=== PATIENT | female | born 1990 | race Caucasian/White ===

== ENCOUNTER → 2022-12-19 | Outpatient (CLI) | payer MEDICAID ==
[~2022-12-19] MED LIST: GADOTERATE 0.5 MMOL/ML (CLARISCAN) 20 ML VIAL IV ONE
--- NOTE | 2022-12-19 18:01 | Diagnostic Imaging Report ---
CLINICAL INDICATIONS: Patient has a fracture of the mid spine area. EXAM: MRI of the thoracic spine performed without IV contrast. Sequences include sagittal T2, sagittal T1, sagittal T2 fat-sat, axial T2, and axial T1. COMPARISON: None. FINDINGS: There is no acute thoracic spine fracture or dislocation. There are chronic compression deformities/Schmorl's nodes involving the upper aspect of the T6 and T10 vertebra with associated Modic type II degenerative signal changes at the T5-T6 and T9-T10 endplate regions. There is roughly 40% localized vertebral body height loss involving the upper aspect of T6 vertebra and roughly 60-70% focal vertebral body height loss involving the upper T10 vertebra. There are diffuse disk bulges seen at T6-T7 and T9-T10 levels. There is no significant central canal narrowing at the T6-T7 level and no significant central canal narrowing at the T9-T10 level. There is mild bilateral T4-T5 and T5-T6 disk space region. IMPRESSION: 1: There are chronic compression deformities or Schmorl's nodes involving the upper endplates of the T6 and T10 vertebra. There is no associated marrow edema. 2: There is thoracic spine degenerative disease with no significant central canal or neural foramen narrowing. 3: There are degenerative spurs involving the thoracic spine and facet arthropathy. Dictated by: Dictated on workstation # [id number]
== END ==
LOC: RAD 13:50
PROVIDERS: ATTEND Nurse Practitioner Family
DX: M51.44 Schmorl's nodes, thoracic region (principal); M47.814 Spondylosis without myelopathy or radiculopathy, thoracic region; S22.009S Unspecified fracture of unspecified thoracic vertebra, sequela; X58.XXXS Exposure to other specified factors, sequela
CPT/HCPCS: 72157

== ENCOUNTER 2023-09-23 13:12 | Emergency (ER) | payer SELFPAY ==
[~2023-09-23] VITALS: Ht 154.9 cm; Wt 109.0 kg
[2023-09-23 13:42] VITALS: BP 130/71
[2023-09-23 14:17] LABS: BASOPHILS % (AUTO) 0 % (0-10); EOSINOPHILS # (AUTO) 0.3 10^3/uL (0.0-0.3); EOSINOPHILS % (AUTO) 3 % (0-10); HEMATOCRIT 41 % (35-52); HEMOGLOBIN 13.4 g/dL (11.5-16.0); LYMPHOCYTES # (AUTO) 1.9 10^3/uL (1.0-4.0); LYMPHOCYTES % (AUTO) 23 % (12-44); MEAN CORPUSCULAR HEMOGLOBIN 30 pg (25-34); MEAN CORPUSCULAR HGB CONC 33 g/dL (32-36); MEAN CORPUSCULAR VOLUME 91 fL (80-99); MEAN PLATELET VOLUME 12.4 fL (9.0-12.2); MONOCYTES # (AUTO) 0.5 10^3/uL (0.0-1.0); MONOCYTES % (AUTO) 6 % (0-12); NEUTROPHILS # (AUTO) 5.7 10^3/uL (1.8-7.8); NEUTROPHILS % (AUTO) 68 % (42-75); PLATELET COUNT 173 10^3/uL (130-400); WHITE BLOOD COUNT 8.4 10^3/uL (4.3-11.0)
[2023-09-23 14:19] LABS: COLOR,URINE YELLOW
[2023-09-23 14:20] LABS: BACTERIA,URINE NEGATIVE /HPF; BILIRUBIN,URINE NEGATIVE (NEGATIVE); CLARITY,URINE CLEAR; GLUCOSE, URINE (UA) NEGATIVE (NEGATIVE); KETONES,URINE TRACE (NEGATIVE); LEUKOCYTE ESTERASE ,URINE NEGATIVE (NEGATIVE); NITRITE,URINE NEGATIVE (NEGATIVE); PH,URINE 5.5 (5-9); PROTEIN,URINE NEGATIVE (NEGATIVE); SQUAMOUS EPITHELIAL CELL,UR 0-2 /HPF
[2023-09-23 14:22] LABS: AMPHETAMINE SCREEN, URINE NEGATIVE (NEGATIVE); BARBITURATE SCREEN URINE NEGATIVE (NEGATIVE); CANNABINOID SCREEN, URINE NEGATIVE (NEGATIVE); COCAINE SCREEN URINE NEGATIVE (NEGATIVE); METHADONE STAT NEGATIVE (NEGATIVE); OPIATE SCREEN URINE NEGATIVE (NEGATIVE); OXYCODONE STAT NEGATIVE (NEGATIVE); TRICYCLIC ANTIDEPRESSANTS SCRE NEGATIVE (NEGATIVE)
--- NOTE | 2023-09-23 14:27 | ED Psychosocial ---
General Chief Complaint: Suicidal Ideation Risk Stated Complaint: AUDITORY HALLUCINATIONS/SUICIDAL Nursing Triage Note: PT AMB TO [facility] 8 WITH C/O HEARING VOICES IN HER HEAD X3 DAYS AND STARTED FEELING SUICIDAL YESTERDAY. PT STATES SHE HAS NEVER FELT SUICIDAL WITH A PLAN PRIOR TO YESTERDAY. PT STATES SHE WAS TAKING HER NIGHT MEDS AND HAD A THOUGHT TO OVERDOSE BUT GAVE ALL OF HER MEDICATIONS TO HER ROOMMATE. PT STATES SHE DOES NOT HAVE ACCESS FIREARMS OR ANY HX OF SELF HARM Source: patient Exam Limitations: no limitations (SHAVONNE WEINER APRN) History of Present Illness Date Seen by Provider: Sep 23, 2023 Time Seen by Provider: 13:34 Initial Comments 33-year-old female presents to the ER for suicidal ideation and auditory hallucinations. She states that on she started hearing voices. She re ports that she hears a woman's voice and a male's voice. States that the voices are talking to her and telling her what other people around her actually think about her. She reports the voices also are telling her to just end it, and that the world would be better off without her, and that her family does not want her around. She denies visual or tactile hallucinations. Patient states her plan was to overdose on her medications. Patient lives at a sober living home with 8 roommates. She gave her medications to one of her friends at the sober living home so that she would not overdose. She states that last night she also had t houghts about cutting herself. She states she has never cut herself previously. She states she has a small pocket knife, but no access to any other knives. She states she has no access to guns. States she has not done anything today to hurt herself. She reports that she is friends with a couple of the roommates, she states she also has support from her family, her family lives several hours away. 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 She states that she used to use any drugs to get her hands on. She reports that he has she has had hallucinations in the past, states this was when she was using drugs. She reports she has had suicidal ideations in the past. States that most recently was just prior to her becoming sober. She reports that when she was 18 she did overdose on aspirin. Patient is tearful during exam. Patient states that she will not harm self while in the hospital. She has been diagnosed with borderline personality disorder, bipolar, anxiety, and depression. She currently takes Vraylar, lamotrigine, clonidine, and prazosin. She recently stopped taking hydroxyzine approximately 2 weeks ago. She saw her psychiatrist on Monday. Her psychiatrist increased her Vraylar and added propranolol, but patient has not these medications, so she has not changed her doses or started the new medication yet. She has not seen a therapist in a long time due difficulty getting in to see one. Reports chronic back pain, denies any change in this. Denies any other physical complaints. (SHAVONNE WEINER APRN) Allergies and Home Medications Allergies Coded Allergies: amoxicillin (Unverified Allergy, Unknown, 12/19/22) promethazine (Verified Allergy, Unknown, 09/23/23) Patient Home Medication List Home Medication List Reviewed: Yes (SHAVONNE WEINER APRN) Review of Systems Constitutional: see HPI (SHAVONNE WEINER APRN) Past Lascdbg-Webwcf-Tdfeap Hx Patient Social History Use of E-Cig and/or Vaping dev: Yes E-Cig or Vaping type used: Nicotine Substance use?: No Alcohol Use?: No Pt feels they are or have been: No (SHAVONNE WEINER APRN) Immunizations Up To Date Influenza Vaccine Up-to-Date: No; Not Current (SHAVONNE WEINER APRN) Past Medical History Surgery/Hospitalization HX: MENTAL HEALTH NO SURG Last Menstrual Period: Sep 07, 2023 (SHAVONNE WEINER APRN) Physical Exam Vital Signs - First Documented 09/23/23 13:42 Temp 36.2 Pulse 79 Resp 16 B/P (MAP) 130/71 (90) Pulse Ox 100 O2 Delivery Room Air (GRIFFIN FREEMAN DO) Capillary Refill : (SHAVONNE WEINER APRN) Height, Weight, BMI Height: '" Weight: lbs. oz. kg; 45.00 BMI Method: General Appearance: WD/WN, no apparent distress Neck: supple, normal inspection Respiratory: lungs clear, normal breath sounds, no respiratory distress, no accessory muscle use Cardiovascular: regular rate, rhythm Extremities: normal range of motion, normal inspection Neurologic/Psychiatric: alert, normal mood/affect Appearance/Memory: appropriate appearance, appropriate insight, neat Behavior/Eye Contact: cooperative, good eye contact, normal speech Thoughts/Hallucinations: normal thought pattern, no apparent hallucination Skin: normal color, warm/dry (HUSAMSHAVONNE MELT DOWN FURNACE OPERATOR) Progress/Results/Core Measures Results/Orders Lab Results Laboratory Tests Test 09/23/23 13:44 09/23/23 14:08 Range/Units Urine Color YELLOW Urine Clarity CLEAR Urine pH 5.5 5-9 Urine Specific Pine 1.025 H 1.016-1.022 Urine Protein NEGATIVE NEGATIVE Urine Glucose (UA) NEGATIVE NEGATIVE Urine Ketones TRACE H NEGATIVE Urine Nitrite NEGATIVE NEGATIVE Urine Bilirubin NEGATIVE NEGATIVE Urine Urobilinogen 0.2 < = 1.0 MG/DL Urine Leukocyte Esterase NEGATIVE NEGATIVE Urine RBC (Auto) NEGATIVE NEGATIVE Urine RBC NONE /HPF Urine WBC NONE /HPF Urine Squamous Epithelial Cells 0-2 /HPF Urine Crystals NONE /LPF Urine Bacteria NEGATIVE /HPF Urine Casts NONE /LPF Urine Mucus SMALL H /LPF Urine Culture Indicated NO Urine Opiates Screen NEGATIVE NEGATIVE Urine Oxycodone Screen NEGATIVE NEGATIVE Urine Methadone Screen NEGATIVE NEGATIVE Urine Barbiturates Screen NEGATIVE NEGATIVE Ur Tricyclic Antidepressants Screen NEGATIVE NEGATIVE Urine Phencyclidine Screen NEGATIVE NEGATIVE Urine Amphetamines Screen NEGATIVE NEGATIVE Urine Methamphetamines Screen NEGATIVE NEGATIVE Urine Benzodiazepines Screen NEGATIVE NEGATIVE Urine Cocaine Screen NEGATIVE NEGATIVE Urine Cannabinoids Screen NEGATIVE NEGATIVE White Blood Count 8.4 4.3-11.0 10^3/uL Red Blood Count 4.49 3.80-5.11 10^6/uL Hemoglobin 13.4 11.5-16.0 g/dL Hematocrit 41 35-52 % Mean Corpuscular Volume 91 80-99 fL Mean Corpuscular Hemoglobin 30 25-34 pg Mean Corpuscular Hemoglobin Concent 33 32-36 g/dL Red Cell Distribution Width 12.0 10.0-14.5 % Platelet Count 173 130-400 10^3/uL Mean Platelet Volume 12.4 H 9.0-12.2 fL Immature Granulocyte % (Auto) 0 % Neutrophils (%) (Auto) 68 42-75 % Lymphocytes (%) (Auto) 23 12-44 % Monocytes (%) (Auto) 6 0-12 % Eosinophils (%) (Auto) 3 0-10 % Basophils (%) (Auto) 0 0-10 % Neutrophils # (Auto) 5.7 1.8-7.8 10^3/uL Lymphocytes # (Auto) 1.9 1.0-4.0 10^3/uL Monocytes # (Auto) 0.5 0.0-1.0 10^3/uL Eosinophils # (Auto) 0.3 0.0-0.3 10^3/uL Basophils # (Auto) 0.0 0.0-0.1 10^3/uL Immature Granulocyte # (Auto) 0.0 0.0-0.1 10^3/uL Sodium Level 140 135-145 MMOL/L Potassium Level 3.9 3.6-5.0 MMOL/L Chloride Level 108 H 98-107 MMOL/L Carbon Dioxide Level 22 21-32 MMOL/L Anion Gap 10 5-14 MMOL/L Blood Urea Nitrogen 11 7-18 MG/DL Creatinine 0.75 0.60-1.30 MG/DL Estimat Glomerular Filtration Rate 109 BUN/Creatinine Ratio 15 Glucose Level 86 70-105 MG/DL Calcium Level 10.0 8.5-10.1 MG/DL Corrected Calcium 9.8 8.5-10.1 MG/DL Total Bilirubin 0.3 0.1-1.0 MG/DL Aspartate Amino Transf (AST/SGOT) 14 5-34 U/L Alanine Aminotransferase (ALT/SGPT) 13 0-55 U/L Alkaline Phosphatase 95 40-136 U/L Total Protein 7.8 6.4-8.2 GM/DL Albumin 4.3 3.2-4.5 GM/DL TSH [place] Testing 1.05 0.35-4.94 UIU/ML Serum Test, Qualitative NEGATIVE NEGATIVE Salicylates Level < 5.0 L 5.0-20.0 MG/DL Acetaminophen Level < 10 L 10-30 UG/ML Serum Alcohol < 10 <10 MG/DL (GRIFFIN FREEMAN DO) My Orders Orders - GRIFFIN FREEMAN DO Ibuprofen Tablet (Ibuprofen Tablet) (09/23/23 21:45) (GRIFFIN FREEMAN DO) Blood Pressure Mean: 90 Progress Progress Note : Progress Note Patient seen and evaluated, resting comfortably in bed, tearful during exam, no acute distress. Based on exam and symptoms, psychiatric medical clearance exam initiated including CBC, CMP, alcohol level, salicylate level, acetaminophen level, urinalysis, urine drug screen, test, thyroid analyzer, EKG, COVID swab. Patient placed on 15-minute checks. Patient changed into gown, all belongings removed from room, room stripped of unnecessary equipment. Patient does have 2 books with her. I offered food for patient. Patient accepted. Nursing staff will order a meal tray for patient. [id number] Labs and EKG reviewed. CBC was normal. CMP grossly normal. TSH normal. negative. Urine drug screen negative. Salicylate, Tylenol, alcohol negative. Urinalysis negative for infection. Patient cleared for mental health evaluation. Nursing staff calling for assessment at this time. [id number] [facility] completed the assessment. They recommended admission. They will begin searching for placement. Patient aware of the plan, agrees to behavioral health admission. She is voluntary. Will allow patient to call her work to let them know. 1899 patient was accepted at [facility]. We do not have transportation until 6 AM in the morning. [facility] states that they are okay with patient coming in the morning. They will provide the name of the accepting doctor in the morning. [id number] off [address] Freeman, ER physician, at this time. (SHAVONNE WEINER APRN) Initial ECG Impression Date: Sep 23, 2023 Initial ECG Impression Time: 13:54 Initial ECG Rate: 85 Initial ECG Rhythm: Normal Sinus Initial ECG Intervals: Normal Initial ECG Impression: Normal Initial ECG Comparisson: No Previous ECG Available (SHAVONNE WEINER APRN) Departure Communication (Admissions) Patient has been accepted to psychiatric facility, awaiting placement. Unfortunately we do not have any transport available overnight. She remained calm, cooperative I rested most of the night without difficulty. Handed off to Dr. Juarez at shift change, 0 [phone] awaiting transport. (GRIFFIN FREEMAN DO) Impression Primary Impression: Suicidal ideation Disposition: 02 XFER SHT-TRM HOSP Condition: Stable Transfer BH Medically Cleared for Xfer: Yes Time Spoke to Accepting Phy: 18:50 Transfer Time: 06:00 Transfer Facility: [facility] Method of Transfer: Private Vehicle (Secure vehicle) (SHAVONNE WEINER APRN) Departure-Patient Inst. Referrals: SONIA GUY APRN (PCP) Primary Care Physician MICKI ABDUL (Family) Primary Care Physician Patient Instructions: OUTPT MENTAL HEALTH SERVICES SHAVONNE WEINER APRN Sep 23, 2023 14:27 GRIFFIN FREEMAN DO Sep 25, 2023 06:27 HEIDI CASTRO MD Sep 25, 2023 09:06
[2023-09-23 14:29] LABS: ALBUMIN 4.3 GM/DL (3.2-4.5); CHLORIDE 108 MMOL/L (98-107); POTASSIUM 3.9 MMOL/L (3.6-5.0); SODIUM 140 MMOL/L (135-145)
[2023-09-23 14:32] LABS: GLUCOSE 86 MG/DL (70-105); TOTAL PROTEIN 7.8 GM/DL (6.4-8.2)
[2023-09-23 14:33] LABS: CARBON DIOXIDE 22 MMOL/L (21-32)
[2023-09-23 14:34] LABS: BILIRUBIN,TOTAL 0.3 MG/DL (0.1-1.0)
[2023-09-23 14:36] LABS: ALKALINE PHOSPHATASE 95 U/L (40-136); CREATININE SERUM 0.75 MG/DL (0.60-1.30); GFR ESTIMATED 109
[2023-09-23 14:37] LABS: BUN/CREATININE RATIO 15
[2023-09-23 14:38] LABS: SALICYLATE < 5.0 MG/DL (5.0-20.0)
[2023-09-23 14:39] LABS: ALANINE AMINOTRANSFERASE 13 U/L (0-55)
[2023-09-23 14:43] LABS: ACETAMINOPHEN < 10 UG/ML (10-30)
[2023-09-23 14:59] LABS: TSH (THYROID ANALYZER) 1.05 UIU/ML (0.35-4.94)
[2023-09-23] MEDS ORDERED: IBUPROFEN 600 MG TABLET PO ONE (21:45)
== END 2023-09-24 06:01 ==
LOC: EDUNIT# 13:12 → ER 13:16
DX: R45.851 Suicidal ideations (principal); F17.290 Nicotine dependence, other tobacco product, uncomplicated
CPT/HCPCS: 80053; 80306; 81000; 84443; 84703 ×2; 85025; 99283; G0480 ×3; 36415; 80320; 80329; 93005